=== PATIENT | female | born 1930 | race Caucasian/White ===

== ENCOUNTER 2017-02-09 10:55 | Inpatient (IN) | payer MEDICARE, BC ==
[2017-02-09] MEDS ORDERED: NORMAL SALINE 1000 ML 1,000 ML IV ONE (11:25)
[2017-02-09 11:32] LABS: ABSOLUTE MONOCYTES (AUTO) 0.8 10^3/uL (0.1-1.4); ABSOLUTE NEUT (AUTO) 13.6 10^3/uL (1.7-8.2); BASOPHILS % (AUTO) 0.2 % (0-2); EOSINOPHILS % (AUTO) 0.2 % (0-6); HEMATOCRIT 49.1 % (36.0-47.0); HEMOGLOBIN 16.4 g/dL (12.0-15.5); HGB HCT DIFFERENCE 0.1; LYMPHOCYTES % (AUTO) 11.9 % (13-45); MEAN CORPUSCULAR HEMOGLOBIN 32.7 pg (27.0-33.4); MEAN CORPUSCULAR HGB CONC 33.4 g/dL (32.0-36.0); MEAN CORPUSCULAR VOLUME 98 fl (80-97); MONOCYTES % (AUTO) 4.7 % (3-13); RED BLOOD COUNT 5.02 10^6/uL (3.72-5.28); RED CELL DISTRIBUTION WIDTH 13.3 % (11.5-14.0); WHITE BLOOD COUNT 16.4 10^3/uL (4.0-10.5)
--- NOTE | 2017-02-09 11:43 | RADIOLOGY REPORT (SQ) ---
EXAM DESCRIPTION: CHEST SINGLE VIEW COMPLETED DATE/TIME: 02/09/2017 11:31 am REASON FOR STUDY: lethargy, fall COMPARISON: None. EXAM PARAMETERS: NUMBER OF VIEWS: One view. TECHNIQUE: Single frontal radiographic view of the chest acquired. RADIATION DOSE: NA LIMITATIONS: None. FINDINGS: LUNGS AND PLEURA: The lungs are hyperexpanded. There are no infiltrates or effusions. Th ere is no mass. MEDIASTINUM AND HILAR STRUCTURES: No masses. Contour normal. HEART AND VASCULAR STRUCTURES: Heart normal in size. Normal vasculature. BONES: No acute findings. HARDWARE: None in the chest. OTHER: No other significant finding. IMPRESSION: Chronic lung changes with no acute cardiopulmonary disease. TECHNICAL DOCUMENTATION: JOB ID: [id number] [employer]- All Rights Reserved
[2017-02-09 12:10] LABS: APPEARANCE,URINE SLIGHTLY-CLOUDY; BILIRUBIN,URINE NEGATIVE (NEGATIVE); GLUCOSE, URINE NEGATIVE (NEGATIVE); KETONES,URINE TRACE mg/dL (NEGATIVE); LEUKOCYTE ESTERASE,URINE TRACE (NEGATIVE); NITRITE,URINE NEGATIVE (NEGATIVE); PROTEIN,URINE 100 mg/dL (NEGATIVE); URINE SPECIFIC GRAVITY 1.028
[2017-02-09] MEDS ORDERED: CEFTRIAXONE 1 GM/D5W RTU 1 GM/50 ML RTUPB IV ONE (12:13)
[2017-02-09 13:34] LABS: ALANINE AMINOTRANSFERASE 35 U/L (9-52); ALBUMIN 3.6 g/dL (3.5-5.0); ALKALINE PHOSPHATASE 83 U/L (38-126); ANION GAP 15 (5-19); ASPARTATE AMINO TRANSFERASE 36 U/L (14-36); BILIRUBIN,DIRECT 0.6 mg/dL (0.0-0.4); BILIRUBIN,TOTAL 0.7 mg/dL (0.2-1.3); BLOOD UREA NITROGEN 30 mg/dL (7-20); CALCIUM 9.9 mg/dL (8.4-10.2); CARBON DIOXIDE 28 mmol/L (22-30); CHLORIDE 108 mmol/L (98-107); CREATINE KINASE 62 U/L (30-135); CREATININE RESULT 1.02 mg/dL (0.52-1.25); GLUCOSE 79 mg/dL (75-110); POTASSIUM 3.3 mmol/L (3.6-5.0); SODIUM 150.6 mmol/L (137-145); TOTAL PROTEIN 6.2 g/dL (6.3-8.2)
[2017-02-09 13:39] LABS: CREATINE KINASE MB 2.41 ng/mL (<4.55)
[2017-02-09 13:43] LABS: TROPONIN I 0.834 ng/mL
--- NOTE | 2017-02-09 14:21 | ER Document Report ---
ED Fall - General Chief Complaint: Fall Stated Complaint: FALL;BODY PAIN Time Seen by Provider: 02/09/17 11:01 Mode of Arrival: Medic Information source: Patient Notes: With dementia who lives alone at home who presents to the ER today because her daughter states that she has been lethargic over the past week after multiple episodes of vomiting. Daughter states that she was recently diagnosed with stomach ulcers and is on Carafate and an antacid medication from her information systems security analyst, has had a lot of nausea and vomiting since having the ulcers. Daughter states that she goes to check on her at least daily and that patient usually walks on her own without any difficulty. Daughter denies that patient has complained of any symptoms such as pain anywhere, fevers or chills. Daughter states that this morning patient was in the bathroom and did fall. This was an unwitnessed fall, daughter states that she found her on the floor. Patient has a History of multiple strokes. TRAVEL OUTSIDE OF THE [place] IN LAST 30 DAYS: No - Related data Allergies/Adverse Reactions: No Known Allergies Allergy (Verified 12/23/13 16:02) Home Medications: Current Home Medications Atorvastatin Calcium [Lipitor 20 mg Tablet] 20 mg PO QHS 02/09/17 [History] Clopidogrel Bisulfate [Plavix 75 mg Tablet] 75 mg PO DAILY 02/09/17 [History] Donepezil HCl [Aricept 5 mg Tablet] 5 mg PO DAILY 02/09/17 [History] Lorazepam [Ativan 1 mg Tablet] 2 mg PO Q4 02/09/17 [History] Mirtazapine [Remeron] 30 mg PO QPM 02/09/17 [History] Oxycodone HCl/Acetaminophen [Oxycodone-Acetaminophen 10-325] 1 each PO Q4HP PRN 02/09/17 [History] Rabeprazole Sodium [Aciphex] 20 mg PO BID 02/09/17 [History] Sucralfate [Carafate Susp 1 Gm/10 Ml Udcup] 1 gm PO Q4 02/09/17 [History] Past Medical History - General Information source: Patient - Social History Smoking Status: Never Smoker Frequency of alcohol use: None Drug Abuse: None Family History: Reviewed & Not Pertinent Patient has suicidal ideation: No Patient has homicidal ideation: No - Past Medical History Cardiac Medical History: Reports: Hx Coronary Artery Disease Denies: Hx Heart Attack, Hx Hypertension Pulmonary Medical History: Denies: Hx Asthma, Hx Bronchitis, Hx COPD, Hx Pneumonia Neurological Medical History: Denies: Hx Cerebrovascular Accident, Hx Seizures Renal/ Medical History: Denies: Hx Peritoneal Dialysis GI Medical History: Reports: Hx Ulcer - Esophageal. Denies: Hx Hepatitis, Hx Hiatal Hernia Musculoskeltal Medical History: Reports Hx Arthritis Psychiatric Medical History: Reports: Hx Anxiety Infectious Medical History: Denies: Hx Hepatitis Past Surgical History: Reports: Hx Cardiac Catheterization - 2 stents, Hx Hysterectomy. Denies: Hx Mastectomy, Hx Open Heart Surgery, Hx Pacemaker - Immunizations Hx Diphtheria, Pertussis, Tetanus Vaccination: No Review of Systems - Review of Systems Constitutional: No symptoms reported EENT: No symptoms reported Cardiovascular: No symptoms reported Respiratory: No symptoms reported Gastrointestinal: See HPI Genitourinary: No symptoms reported Female Genitourinary: No symptoms reported Musculoskeletal: See HPI Skin: No symptoms reported Hematologic/Lymphatic: No symptoms reported Neurological/Psychological: See HPI Physical Exam - Vital signs Vitals: Resp Pulse Ox 14 99 02/09/17 11:02 02/09/17 11:02 - Notes Notes: PHYSICAL EXAMINATION: GENERAL: demented, lethargic, in no acute distress. HEAD: Atraumatic, normocephalic. EYES: Pupils equal round and reactive to light, extraocular movements intact, sclera anicteric, conjunctiva are normal. NECK: Normal range of motion, supple without lymphadenopathy LUNGS: CTAB and equal. No wheezes rales or rhonchi. HEART: Regular rate and rhythm without murmurs ABDOMEN: Soft, no tenderness. No guarding, no rebound BACK: no vertebral tenderness, normal ROM GI/: no CVA tenderness EXTREMITIES: Normal range of motion, no pitting edema. No cyanosis. NEUROLOGICAL: demented PSYCH: Nonverbal SKIN: Warm, Dry, normal turgor, no rashes or lesions noted Course - Re-evaluation Re-evalutation: 02/09/17 15:14 White blood cell count is 16.4, patient has a urinary tract infection with leukocytes and 62 White blood cells on urinalysis, patient came in hypotensive and tachycardic, this is completely resolved with IV fluids at this time. Patient is now normotensive and has had a pulse in the 70s for some time now. Patient has been resting. Initial EKG reveals some ST depressions in leads II, III and aVF. troponin is 0.834. At this time daughter and I did have a conversation, she states patient is a DNR and that she does not want her transferred to receive cardiac catheterization. She states that she wants medical treatment for patients NSTEMI at this time. Dr. Olsen, hospitalist agrees to admission at this time. 02/09/17 18:52 - Vital Signs Vital signs: Temp Pulse Resp BP Pulse Ox 98.2 F 17 94/76 L 92 02/09/17 14:33 02/09/17 16:55 02/09/17 18:09 02/09/17 16:55 - Laboratory Result Diagrams: 02/09/17 11:10 02/09/17 12:50 Laboratory results interpreted by me: 02/09/17 02/09/17 02/09/17 11:10 11:10 12:50 WBC 16.4 H Hgb 16.4 H Hct 49.1 H MCV 98 H Seg Neutrophils % 83.0 H Lymphocytes % 11.9 L Absolute Neutrophils 13.6 H Sodium 150.6 H Potassium 3.3 L Chloride 108 H BUN 30 H Est GFR (Non-Af Amer) 52 L Direct Bilirubin 0.6 H Total Protein 6.2 L Urine Protein 100 H Urine Ketones TRACE H Urine Blood LARGE H Urine Urobilinogen 2.0 H Ur Leukocyte Esterase TRACE H Discharge - Discharge Clinical Impression: NSTEMI (non-ST elevated myocardial infarction) UTI (urinary tract infection) Qualifiers: Urinary tract infection type: site unspecified Hematuria presence: with hematuria Qualified Code(s): N39.0 - Urinary tract infection, site not specified Fall Qualifiers: Encounter type: initial encounter Qualified Code(s): W19.XXXA - Unspecified fall, initial encounter Dementia Qualifiers: Dementia type: unspecified type Dementia behavioral disturbance: without behavioral disturbance Qualified Code(s): F03.90 - Unspecified dementia without behavioral disturbance Condition: Stable Disposition: ADMITTED INPATIENT Admitting Provider: Hospitalist Unit Admitted: Telemetry
[2017-02-09] MEDS ORDERED: ACETAMINOPHEN 325 MG TABLET PO PRN (16:40)
[2017-02-09] MEDS ORDERED: IPRATROPIUM/ALBUTEROL 0.5-2.5 MG/3 ML AMPUL NEB PRN (16:40)
[2017-02-09] MEDS ORDERED: (PENDING PHARMACY ID) (Oxycodone Hcl/Acetaminophen [Oxycodone-Acetaminophen 10-325] 1 EACH PO PRN (17:12)
[2017-02-09] MEDS: LORAZEPAM 1 MG TABLET PO SCH ×2 (17:33→21:50)
[2017-02-09] MEDS: NORMAL SALINE 1000 ML 1,000 ML IV PRN ×2 (17:50→19:20)
[2017-02-09] MEDS ORDERED: (PENDING PHARMACY ID) (Rabeprazole Sodium [Aciphex] 20 MG) PO SCH (18:00)
--- NOTE | 2017-02-09 19:05 | PDOC H&P ---
History of Present Illness Admission Date/PCP: 02/09/17 16:02 History of Present Illness: KYLER CAMERON is a 86 year old white female with a past medical history of coronary artery disease, hypertension, esophageal ulcer disease, chronic pain on chronic pain medicine secondary to arthritis and bladder cancer presented to the service today after a fall. According to her family members over the last month the patient has been steadily declining in her mentation. Over the last 3 days things have been at their worse. The patient has been sleeping nonstop in bed with decreased appetite. The patient has lost a lot of weight because of her ulcer disease and stricture of her esophagus. Her family also states that she has become more difficult to get along with and that her mentation has worsened. Today she had a fall in the bathroom. According to her son she hit her head and that explains her hematoma. He states that the patient is on Plavix. In the ED, the patient is quite restless and trying to take off her bandage that is being used to secure her IV. She told me flat out that she did not want to talk to me and that she thought my questions about a year and asking her where she was were silly. In the ED she was found to have an elevated troponin of 0.835 as well as initially hypotensive with a systolic blood pressure of 70. She was given a liter bolus which increased her blood pressure quite nicely to the low 100s. Creatinine was 1.02. Her family was quite specific that they would not want the patient to have extreme measures done in terms of a cardiac workup. They state that she has been having symptoms of dysuria and complaining of pressure whenever she has to have a bowel movement or urinates. In the emergency room her urinalysis showed large blood with trace leukocyte esterase her white blood cell count is 16.4. she got a shot of Rocephin while she was down there. Past Medical History Cardiac Medical History: Reports: Coronary Artery Disease, Hypertension Cardiac History Note: Carotid disease bilaterally Pulmonary Medical History: Reports: Chronic Obstructive Pulmonary Disease (COPD) Neurological Medical History: Reports: Ischemic CVA Malignancy History Note: Bladder cancer Musculoskeltal Medical History: Reports: Arthritis Skin History Note: Lupus Past Surgical History Past Surgical History: Bladder surgery 2 Past Surgical History: Reports: Cardiac Catheterization - 2 stents, Hysterectomy Social History Information Source: Patient Lives with: Family Smoking Status: Current Every Day Smoker Cigars Per Day: 1 Number of Years Smokin Frequency of Alcohol Use: None Hx Recreational Drug Use: Yes - Advance Directive Resuscitation Status: Do Not Resuscitate Family History Family History: CVA, DM, Hypertension Parental Family History Reviewed: Yes Children Family History Reviewed: Yes Sibling(s) Family History Reviewed.: Yes Medication/Allergy Home Medications: Atorvastatin Calcium [Lipitor 20 mg Tablet] 20 mg PO QHS 02/09/17 Clopidogrel Bisulfate [Plavix 75 mg Tablet] 75 mg PO DAILY 02/09/17 Donepezil HCl [Aricept 5 mg Tablet] 5 mg PO DAILY 02/09/17 Lorazepam [Ativan 1 mg Tablet] 2 mg PO Q4 02/09/17 Mirtazapine [Remeron] 30 mg PO QPM 02/09/17 Oxycodone HCl/Acetaminophen [Oxycodone-Acetaminophen 10-325] 1 each PO Q4HP PRN 02/09/17 Rabeprazole Sodium [Aciphex] 20 mg PO BID 02/09/17 Sucralfate [Carafate Susp 1 Gm/10 Ml Udcup] 1 gm PO Q4 02/09/17 Allergies/Adverse Reactions: No Known Allergies Allergy (Verified 12/23/13 16:02) Review of Systems Review of Systems: The patient does not cooperate with the review of systems. She refuses to be interview. Her family at the bedside has said that she is cold natured and that at times she complains of abdominal pain with trying to pass a bowel movement. She has chronic arthritis and often complains of that and she is had visual changes since her last stroke. She has had weight loss but they cannot quantify it. They attribute this weight loss due to her esophageal stricture and ulcerative disease. They deny that she is complained to them about any chest pain, shortness of breath, fever, vomiting, nausea, headaches, dizziness or lightheadedness, blood in the stool, blood in urine coughing up blood or throwing up blood. Physical Exam Vital Signs: Temp Pulse Resp BP Pulse Ox 98.2 F 17 153/131 H 92 02/09/17 14:33 02/09/17 16:55 02/09/17 16:00 02/09/17 16:55 GENERAL: This is a well-developed well-nourished appearing white female resting in bed currently in no acute distress but quite uncooperative and fidgety at the bedside. HEENT normocephalic. Atraumatic. The patient has a hematoma of the forehead. Moist mucous mucous membranes. Trachea is midline. HEART: Regular rate and rhythm. No murmurs, rubs or gallops. LUNGS: Clear to auscultation anteriorly bilaterally with equal rise and fall of the chest. ABDOMEN: Soft, nontender, nondistended with normoactive bowel sounds EXTREMETIES: No clubbing, cyanosis or edema. 2+ peripheral pulses bilaterally. Small-caliber extremities. NEURO: Awake, alert. The patient will not answer orienting questions. I suspect she is disoriented. I had to make a game out of most of the neurologic assessment therefore it is incomplete due to lack of cooperation. Cranial nerves II through XII are grossly intact. The patient can lift her legs against gravity. She is willing to make a muscle for me and seems to have 5 out of 5 strength in the upper extremities bilaterally Results Impressions: Chest X-Ray 02/09/17 11:02 IMPRESSION: Chronic lung changes with no acute cardiopulmonary disease. Assessment & Plan - Diagnosis (1) Acute on chronic alteration in mental status Plan: Patient's family states that her mental status seems to be acutely worse although it also seems to have been steadily declining up to these 3 days. It may be that she has underlying dementia with superimposed infection that is causing worsening in her behavior. I will have some as needed Haldol and her family has given permission for restraints if necessary. Apparently she is had to have restraints before in the past. Hopefully her mentation will clear. (2) CVA (cerebral vascular accident) Plan: Patient is on Plavix at home. We will keep an eye on her hemoglobin. Because of her extensive history of CVAs in the past, we should continue the Plavix for now. (3) Bladder cancer Plan: Follow-up as outpatient. The patient has had some symptoms of dysuria however. See below (4) Tobacco abuse Plan: Poking cessation is advised (5) Hypotension Plan: This may be the beginnings of sepsis or this could be secondary to cardiogenic insult from an STEMI. The patient's blood pressure responded nicely to a liter fluid bolus. Continue to monitor. Continue IV fluids. (6) Chronic pain Plan: Continue home regimen. Chronic pain is secondary to widespread arthritis. (8) Dementia Qualifiers: Dementia type: unspecified type Dementia behavioral disturbance: without behavioral disturbance Qualified Code(s): F03.90 - Unspecified dementia without behavioral disturbance (9) Fall Qualifiers: Encounter type: initial encounter Qualified Code(s): W19.XXXA - Unspecified fall, initial encounter Plan: Possibly secondary to arrhythmia versus medication effects or simply a mechanical fall. It is unknown at this point. (10) NSTEMI (non-ST elevated myocardial infarction) Plan: Troponins are initially 0.8. Repeat 2. At this point and at her age and with her comorbid conditions, I do not recommend pursuit of cardiac cath. Family is in agreement with this. However, we certainly can pursue optimization of her medications. She is already on Plavix for history of CVA. We certainly can give her therapeutic dose of Lovenox. However with her hypotension beta- blockade at this point is not something we can do. Repeat troponins are pending. Cardiology consult is in place. (11) UTI (urinary tract infection) Qualifiers: Urinary tract infection type: site unspecified Hematuria presence: with hematuria Qualified Code(s): N39.0 - Urinary tract infection, site not specified; R31.9 - Hematuria, unspecified; R31.9 - Hematuria, unspecified Plan: Ultrasound been sent continue Rocephin. The family acknowledges dysuria on behalf of the patient. - Time Time Spent: 50 to 70 Minutes - Inpatient Certification Medical Necessity: Need Close Monitoring Due to Risk of Patient Decompensation
[2017-02-09] MEDS ORDERED: HALOPERIDOL LACTATE INJ 5 MG/1 ML VIAL IV PRN (19:08)
[2017-02-09] MEDS: OXYCODONE HCL IR 5 MG TABLET PO PRN (19:20)
[2017-02-09] MEDS: OXYCODONE-ACETAMINOPHEN 5-325 MG TABLET PO PRN (19:20)
[2017-02-09] MEDS: SUCRALFATE SUSP 1 GM/10 ML UDCUP PO SCH ×2 (19:21→21:49)
[2017-02-09] MEDS ORDERED: ENOXAPARIN SODIUM INJ 40 MG/0.4 ML DISP.SYRIN SUBCUT ONE (20:00)
[2017-02-09] MEDS ORDERED: INFLUENZA ADLT QUAD (36MOS+) 2017-18 VAC 0.5 ML SYR IM PRN (20:35)
[2017-02-09] MEDS: MIRTAZAPINE 15 MG TABLET PO SCH (21:50)
[2017-02-09] MEDS: ATORVASTATIN CALCIUM 20 MG TABLET PO SCH (21:50)
[2017-02-10] MEDS: LORAZEPAM 1 MG TABLET PO SCH ×6 (02:05→19:05)
[2017-02-10] MEDS: SUCRALFATE SUSP 1 GM/10 ML UDCUP PO SCH ×5 (02:05→18:22)
[2017-02-10] MEDS ORDERED: NORMAL SALINE 1000 ML 1,000 ML IV PRN (02:13)
[2017-02-10] MEDS ORDERED: NORMAL SALINE 1000 ML 1,000 ML IV ONE ×2 (02:13→04:02)
[2017-02-10 06:09] LABS: ABSOLUTE EOSINOPHILS # (AUTO) 0.2 10^3/uL (0.0-0.6); ABSOLUTE LYMPHOCYTES (AUTO) 3.4 10^3/uL (0.5-4.7); ABSOLUTE MONOCYTES (AUTO) 0.6 10^3/uL (0.1-1.4); BASOPHILS % (AUTO) 0.3 % (0-2); EOSINOPHILS % (AUTO) 1.3 % (0-6); HEMATOCRIT 37.5 % (36.0-47.0); HGB HCT DIFFERENCE 0.6; LYMPHOCYTES % (AUTO) 27.6 % (13-45); MEAN CORPUSCULAR HEMOGLOBIN 33.2 pg (27.0-33.4); MEAN CORPUSCULAR VOLUME 98 fl (80-97); MONOCYTES % (AUTO) 5.1 % (3-13); RED BLOOD COUNT 3.84 10^6/uL (3.72-5.28); RED CELL DISTRIBUTION WIDTH 13.1 % (11.5-14.0); SEGMENTED NEUTROPHILS % (AUTO) 65.7 % (42-78); WHITE BLOOD COUNT 12.2 10^3/uL (4.0-10.5)
[2017-02-10 06:13] LABS: HEMOGLOBIN 12.7 g/dL (12.0-15.5)
[2017-02-10 06:14] LABS: ANION GAP 13 (5-19); BLOOD UREA NITROGEN 19 mg/dL (7-20); CARBON DIOXIDE 21 mmol/L (22-30); CHLORIDE 114 mmol/L (98-107); CREATININE RESULT 0.67 mg/dL (0.52-1.25); GLUCOSE 42 mg/dL (75-110); SODIUM 147.5 mmol/L (137-145)
[2017-02-10 06:19] LABS: POTASSIUM 2.7 mmol/L (3.6-5.0)
[2017-02-10] MEDS ORDERED: POTASSIUM CHLORIDE 10 MEQ TABLET.SA PO ONE (06:21)
[2017-02-10] MEDS ORDERED: DEXTROSE 50%-WATER 25 GM/50 ML DISP.SYRIN IV ONE ×3 (06:21→17:15)
[2017-02-10] MEDS: POTASSI CL 20 MEQ/50 ML RIDER 20 MEQ/50 ML RTUPB IV SCH ×4 (06:56→18:20)
[2017-02-10] MEDS ORDERED: DONEPEZIL HCL 5 MG TABLET PO SCH (10:00)
[2017-02-10] MEDS: OXYCODONE HCL IR 5 MG TABLET PO PRN ×2 (10:44→15:12)
[2017-02-10] MEDS: OXYCODONE-ACETAMINOPHEN 5-325 MG TABLET PO PRN ×2 (10:44→15:11)
[2017-02-10] MEDS: CLOPIDOGREL BISULFATE 75 MG TABLET PO SCH (10:45)
[2017-02-10] MEDS: LANSOPRAZOLE 30 MG TAB.RAP.DR PO SCH ×2 (10:45→18:21)
--- NOTE | 2017-02-10 11:43 | EKG REPORT ---
SEVERITY:- BORDERLINE ECG - SINUS RHYTHM RIGHT AXIS DEVIATION BORDERLINE T ABNORMALITIES, DIFFUSE LEADS : Confirmed by: Ann Haynes 10-Feb-2017 11:42:37
--- NOTE | 2017-02-10 11:43 | EKG REPORT ---
SEVERITY:- ABNORMAL ECG - SINUS RHYTHM RIGHT ATRIAL ABNORMALITY NONSPECIFIC ST-T CHANGES : Confirmed by: Ann Haynes 10-Feb-2017 11:43:01
[2017-02-10] MEDS: CEFTRIAXONE 1 GM/D5W RTU 1 GM/50 ML RTUPB IV SCH (12:25)
--- NOTE | 2017-02-10 15:30 | PDOC PROGRESS REPORT ---
Subjective Progress Note for:: 02/10/17 Subjective:: Patient is awake, she appears comfortable. She is a poor historian secondary to dementia. She has been pulling out IVs next needed for her medications. Family at bedside. Mittens have been ordered and family agree to prevent alcohol pulling out her IVs. Patient has poor oral intake. She is on IV fluids. Physical Exam Vital Signs: Temp Pulse Resp BP Pulse Ox 97.9 F 75 16 120/69 99 02/10/17 12:13 02/10/17 12:13 02/10/17 12:13 02/10/17 12:13 02/10/17 12:13 Intake & Output 02/09/17 02/10/17 02/11/17 06:59 06:59 05:59 Intake Total 2745 Balance 2745 Weight 44.254 kg Exam: GENERAL: Cachectic, no acute distress CARDIOVASCULAR: RRR, normal S1-S2 LUNGS: CTA bilaterally ABDOMEN: Soft, NT, NL bowel sounds EXTREMITIES: No edema, clubbing, cyanosis NEUROLOGICAL: Alert, Results Laboratory Results: 02/10/17 04:54 02/10/17 04:54 02/10/17 02/10/17 02/10/17 04:54 04:54 04:54 WBC 12.2 H RBC 3.84 Hgb 12.7 D Hct 37.5 MCV 98 H MCH 33.2 MCHC 34.0 RDW 13.1 Plt Count 181 Seg Neutrophils % 65.7 Lymphocytes % 27.6 Monocytes % 5.1 Eosinophils % 1.3 Basophils % 0.3 Absolute Neutrophils 8.0 Absolute Lymphocytes 3.4 Absolute Monocytes 0.6 Absolute Eosinophils 0.2 Absolute Basophils 0.0 Sodium 147.5 H Potassium 2.7 L* Chloride 114 H Carbon Dioxide 21 L Anion Gap 13 BUN 19 Creatinine 0.67 Est GFR ( Amer) > 60 Est GFR (Non-Af Amer) > 60 Glucose 42 L Calcium 8.0 L Ionized Calcium Chente Magnesium 1.8 02/10/17 07:19 WBC RBC Hgb Hct MCV MCH MCHC RDW Plt Count Seg Neutrophils % Lymphocytes % Monocytes % Eosinophils % Basophils % Absolute Neutrophils Absolute Lymphocytes Absolute Monocytes Absolute Eosinophils Absolute Basophils Sodium Potassium Chloride Carbon Dioxide Anion Gap BUN Creatinine Est GFR ( Amer) Est GFR (Non-Af Amer) Glucose Calcium Ionized Calcium Chente 1.04 L Magnesium 02/09/17 02/09/17 17:19 23:35 Troponin I 0.810 0.844 Impressions: Chest X-Ray 02/09/17 11:02 IMPRESSION: Chronic lung changes with no acute cardiopulmonary disease. Assessment & Plan - Diagnosis (1) Acute on chronic alteration in mental status Plan: Patient still with periods of confusion, but slightly improved. Dementia likely contributory as well as a UTI. We will continue to monitor and treat medical conditions/contributors. (2) NSTEMI (non-ST elevated myocardial infarction) Plan: Troponins slightly elevated but flat. Continue medical management. Patient on aspirin and Plavix. (3) UTI (urinary tract infection) Qualifiers: Urinary tract infection type: site unspecified Hematuria presence: with hematuria Qualified Code(s): N39.0 - Urinary tract infection, site not specified; R31.9 - Hematuria, unspecified; R31.9 - Hematuria, unspecified Plan: Continue Rocephin. Follow cultures (4) Dementia Qualifiers: Dementia type: Alzheimer's disease Dementia behavioral disturbance: without behavioral disturbance Is this a current diagnosis for this admission?: Yes (5) Hypotension Plan: Improving. Continue IV fluids. (6) Bladder cancer Qualifiers: Bladder location: unspecified site Qualified Code(s): C67.9 - Malignant neoplasm of bladder, unspecified Is this a current diagnosis for this admission?: Yes Plan: Follow urine culture results. Continue antibiotics. Outpatient follow-up for underlying bladder cancer at discharge. (7) CVA (cerebral vascular accident) Is this a current diagnosis for this admission?: No (8) Hypokalemia Is this a current diagnosis for this admission?: Yes Plan: Repleted. Follow-up Chem-7 in a.m. - Plan Summary Plan Summary: Suspected altered mental status secondary to underlying dementia as well as urinary tract infection. Blood culture growing gram-positive cocci. We will follow sensitivity. Continue IV fluids for now. Continue Rocephin for UTI. Add ensure to diet. Continue IV fluids for now.
[2017-02-10] MEDS: DEXTROSE 5%-NORMAL SALINE 1,000 ML IV PRN (18:19)
[2017-02-11] MEDS: SUCRALFATE SUSP 1 GM/10 ML UDCUP PO SCH ×7 (01:34→23:34)
[2017-02-11] MEDS: LORAZEPAM 1 MG TABLET PO SCH ×7 (01:34→23:33)
[2017-02-11] MEDS: DEXTROSE 5%-NORMAL SALINE 1,000 ML IV PRN ×3 (01:35→19:00)
[2017-02-11] MEDS: MIRTAZAPINE 15 MG TABLET PO SCH ×2 (01:49→23:33)
[2017-02-11] MEDS: ATORVASTATIN CALCIUM 20 MG TABLET PO SCH ×2 (01:49→23:33)
[2017-02-11 06:44] LABS: ABSOLUTE EOSINOPHILS # (AUTO) 0.2 10^3/uL (0.0-0.6); ABSOLUTE LYMPHOCYTES (AUTO) 2.6 10^3/uL (0.5-4.7); ABSOLUTE MONOCYTES (AUTO) 0.5 10^3/uL (0.1-1.4); ABSOLUTE NEUT (AUTO) 7.2 10^3/uL (1.7-8.2); BASOPHILS % (AUTO) 0.3 % (0-2); HEMATOCRIT 41.1 % (36.0-47.0); HEMOGLOBIN 14.1 g/dL (12.0-15.5); HGB HCT DIFFERENCE 1.2; LYMPHOCYTES % (AUTO) 24.6 % (13-45); MEAN CORPUSCULAR HEMOGLOBIN 33.6 pg (27.0-33.4); MEAN CORPUSCULAR HGB CONC 34.3 g/dL (32.0-36.0); MEAN CORPUSCULAR VOLUME 98 fl (80-97); MONOCYTES % (AUTO) 4.8 % (3-13); RED BLOOD COUNT 4.19 10^6/uL (3.72-5.28); RED CELL DISTRIBUTION WIDTH 13.3 % (11.5-14.0); SEGMENTED NEUTROPHILS % (AUTO) 68.3 % (42-78); WHITE BLOOD COUNT 10.5 10^3/uL (4.0-10.5)
[2017-02-11 07:02] LABS: ANION GAP 9 (5-19); BLOOD UREA NITROGEN 7 mg/dL (7-20); CALCIUM 8.3 mg/dL (8.4-10.2); CARBON DIOXIDE 21 mmol/L (22-30); CHLORIDE 117 mmol/L (98-107); CREATININE RESULT 0.55 mg/dL (0.52-1.25); GLUCOSE 100 mg/dL (75-110); SODIUM 146.8 mmol/L (137-145)
[2017-02-11] MEDS: CLOPIDOGREL BISULFATE 75 MG TABLET PO SCH (12:06)
[2017-02-11] MEDS: LANSOPRAZOLE 30 MG TAB.RAP.DR PO SCH ×2 (12:07→18:51)
[2017-02-11] MEDS: CEFTRIAXONE 1 GM/D5W RTU 1 GM/50 ML RTUPB IV SCH (12:07)
[2017-02-11] MEDS: OXYCODONE HCL IR 5 MG TABLET PO PRN (12:20)
[2017-02-11] MEDS: OXYCODONE-ACETAMINOPHEN 5-325 MG TABLET PO PRN (12:21)
--- NOTE | 2017-02-11 21:05 | PDOC PROGRESS REPORT ---
Subjective Progress Note for:: 02/11/17 Subjective:: Patient is awake, she is more awake today. She was pulling out IVs needed for her medications. Family at bedside. Mittens remain in place in her hands and family agree to prevent her pulling out her IVs. Patient has poor oral intake. She remains on IV fluids. Physical Exam Vital Signs: Temp Pulse Resp BP Pulse Ox 98.8 F 66 20 122/38 L 98 02/11/17 16:00 02/11/17 19:00 02/11/17 16:00 02/11/17 16:00 02/11/17 16:00 Intake & Output 02/10/17 02/11/17 02/12/17 07:59 06:59 06:59 Intake Total 2102 Output Total Balance 2102 Weight Exam: GENERAL: Cachectic, no acute distress CARDIOVASCULAR: RRR, normal S1-S2 LUNGS: CTA bilaterally ABDOMEN: Soft, NT, NL bowel sounds EXTREMITIES: No edema, clubbing, cyanosis NEUROLOGICAL: Alert, oriented to name and place. Results Laboratory Results: 02/11/17 06:29 02/11/17 06:29 02/11/17 02/11/17 06:29 06:29 WBC 10.5 RBC 4.19 Hgb 14.1 Hct 41.1 MCV 98 H MCH 33.6 H MCHC 34.3 RDW 13.3 Plt Count 193 Seg Neutrophils % 68.3 Lymphocytes % 24.6 Monocytes % 4.8 Eosinophils % 2.0 Basophils % 0.3 Absolute Neutrophils 7.2 Absolute Lymphocytes 2.6 Absolute Monocytes 0.5 Absolute Eosinophils 0.2 Absolute Basophils 0.0 Sodium 146.8 H Potassium 4.0 Chloride 117 H Carbon Dioxide 21 L Anion Gap 9 BUN 7 Creatinine 0.55 Est GFR ( Amer) > 60 Est GFR (Non-Af Amer) > 60 Glucose 100 Calcium 8.3 L 02/09/17 02/09/17 17:19 23:35 Troponin I 0.810 0.844 Impressions: Chest X-Ray 02/09/17 11:02 IMPRESSION: Chronic lung changes with no acute cardiopulmonary disease. Assessment & Plan - Diagnosis (1) Acute on chronic alteration in mental status Plan: Patient confusion has improved. Dementia likely contributory as well as a UTI. We will continue to monitor and treat medical conditions/contributors. (2) NSTEMI (non-ST elevated myocardial infarction) Plan: Troponins slightly elevated but flat. Continue medical management. Patient on aspirin and Plavix. (3) UTI (urinary tract infection) Qualifiers: Urinary tract infection type: site unspecified Hematuria presence: with hematuria Qualified Code(s): N39.0 - Urinary tract infection, site not specified; R31.9 - Hematuria, unspecified; R31.9 - Hematuria, unspecified Plan: Continue Rocephin. Follow cultures (4) Dementia Qualifiers: Dementia type: Alzheimer's disease Dementia behavioral disturbance: without behavioral disturbance Is this a current diagnosis for this admission?: Yes Plan: Mental status improving with treatment of infection. (5) Hypotension Plan: Improved. Continue IV fluids. (6) Bladder cancer Qualifiers: Bladder location: unspecified site Qualified Code(s): C67.9 - Malignant neoplasm of bladder, unspecified Is this a current diagnosis for this admission?: Yes Plan: Follow urine culture results. Continue antibiotics. Outpatient follow-up for underlying bladder cancer at discharge. (7) CVA (cerebral vascular accident) Is this a current diagnosis for this admission?: No Plan: We will continue Plavix and aspirin. (8) Hypokalemia Is this a current diagnosis for this admission?: Yes Plan: Remains corrected. Follow-up Chem-7 in a.m.
[2017-02-12] MEDS: LORAZEPAM 1 MG TABLET PO SCH ×6 (04:08→22:15)
[2017-02-12] MEDS: SUCRALFATE SUSP 1 GM/10 ML UDCUP PO SCH ×6 (04:08→22:15)
[2017-02-12] MEDS: DEXTROSE 5%-NORMAL SALINE 1,000 ML IV PRN ×3 (05:15→22:15)
[2017-02-12] MEDS: LANSOPRAZOLE 30 MG TAB.RAP.DR PO SCH ×2 (09:45→18:00)
[2017-02-12] MEDS: CLOPIDOGREL BISULFATE 75 MG TABLET PO SCH (09:45)
[2017-02-12 11:46] LABS: ABSOLUTE EOSINOPHILS # (AUTO) 0.2 10^3/uL (0.0-0.6); ABSOLUTE LYMPHOCYTES (AUTO) 2.6 10^3/uL (0.5-4.7); ABSOLUTE MONOCYTES (AUTO) 0.6 10^3/uL (0.1-1.4); BASOPHILS % (AUTO) 0.2 % (0-2); EOSINOPHILS % (AUTO) 1.3 % (0-6); HEMATOCRIT 41.7 % (36.0-47.0); HGB HCT DIFFERENCE 0.3; LYMPHOCYTES % (AUTO) 20.8 % (13-45); MEAN CORPUSCULAR HGB CONC 33.6 g/dL (32.0-36.0); MEAN CORPUSCULAR VOLUME 98 fl (80-97); MONOCYTES % (AUTO) 5.1 % (3-13); RED BLOOD COUNT 4.24 10^6/uL (3.72-5.28); RED CELL DISTRIBUTION WIDTH 13.1 % (11.5-14.0); SEGMENTED NEUTROPHILS % (AUTO) 72.6 % (42-78); WHITE BLOOD COUNT 12.5 10^3/uL (4.0-10.5)
[2017-02-12 12:19] LABS: ANION GAP 9 (5-19); BLOOD UREA NITROGEN 5 mg/dL (7-20); CALCIUM 8.4 mg/dL (8.4-10.2); CARBON DIOXIDE 22 mmol/L (22-30); CHLORIDE 113 mmol/L (98-107); CREATININE RESULT 0.51 mg/dL (0.52-1.25); GLUCOSE 86 mg/dL (75-110); POTASSIUM 3.4 mmol/L (3.6-5.0); SODIUM 144.4 mmol/L (137-145)
[2017-02-12] MEDS: CEFTRIAXONE 1 GM/D5W RTU 1 GM/50 ML RTUPB IV SCH (12:29)
--- NOTE | 2017-02-12 18:29 | PDOC PROGRESS REPORT ---
Subjective Progress Note for:: 02/12/17 Subjective:: Patient is more awake today. She was pulling out IVs needed for her medications and had mittens placed. She is doing better now mittens have been discontinued. Son at bedside. Mittens remain in place in her hands and family agree to prevent her pulling out her IVs. Patient has poor oral intake. She remains on IV fluids. Physical Exam Vital Signs: Temp Pulse Resp BP Pulse Ox 97.6 F 65 16 150/60 H 100 02/12/17 16:00 02/12/17 16:00 02/12/17 16:00 02/12/17 16:00 02/12/17 16:00 Intake & Output 02/11/17 02/12/17 02/13/17 06:59 06:59 06:59 Intake Total 3060 Output Total Balance 3060 Weight 48.4 kg Exam: GENERAL: Cachectic, no acute distress CARDIOVASCULAR: RRR, normal S1-S2 LUNGS: CTA bilaterally ABDOMEN: Soft, NT, NL bowel sounds EXTREMITIES: No edema, clubbing, cyanosis NEUROLOGICAL: Alert, oriented to name and place. Results Laboratory Results: 02/12/17 10:21 02/12/17 10:21 02/12/17 02/12/17 10:21 10:21 WBC 12.5 H RBC 4.24 Hgb 14.0 Hct 41.7 MCV 98 H MCH 33.0 MCHC 33.6 RDW 13.1 Plt Count 215 Seg Neutrophils % 72.6 Lymphocytes % 20.8 Monocytes % 5.1 Eosinophils % 1.3 Basophils % 0.2 Absolute Neutrophils 9.0 H Absolute Lymphocytes 2.6 Absolute Monocytes 0.6 Absolute Eosinophils 0.2 Absolute Basophils 0.0 Sodium 144.4 Potassium 3.4 L Chloride 113 H Carbon Dioxide 22 Anion Gap 9 BUN 5 L Creatinine 0.51 L Est GFR ( Amer) > 60 Est GFR (Non-Af Amer) > 60 Glucose 86 Calcium 8.4 02/09/17 02/09/17 17:19 23:35 Troponin I 0.810 0.844 Impressions: Chest X-Ray 02/09/17 11:02 IMPRESSION: Chronic lung changes with no acute cardiopulmonary disease. Assessment & Plan - Diagnosis (1) Acute on chronic alteration in mental status Plan: Patient confusion has improved. Dementia likely contributory as well as a UTI. We will continue to monitor and treat medical conditions/contributors. (2) NSTEMI (non-ST elevated myocardial infarction) Plan: Troponins slightly elevated but flat. Continue medical management. Patient on aspirin and Plavix. (3) UTI (urinary tract infection) Qualifiers: Urinary tract infection type: site unspecified Hematuria presence: with hematuria Qualified Code(s): N39.0 - Urinary tract infection, site not specified; R31.9 - Hematuria, unspecified; R31.9 - Hematuria, unspecified Plan: Continue Rocephin. Follow cultures (4) Dementia Qualifiers: Dementia type: Alzheimer's disease Dementia behavioral disturbance: without behavioral disturbance Is this a current diagnosis for this admission?: Yes Plan: Mental status improving with treatment of infection. (5) Hypotension Plan: Improved. Continue IV fluids. (6) Bladder cancer Qualifiers: Bladder location: unspecified site Qualified Code(s): C67.9 - Malignant neoplasm of bladder, unspecified Is this a current diagnosis for this admission?: Yes Plan: Follow urine culture results. Continue antibiotics. Outpatient follow-up for underlying bladder cancer at discharge. (7) CVA (cerebral vascular accident) Is this a current diagnosis for this admission?: No Plan: We will continue Plavix and aspirin. Patient with debility. Plan is for senior living facility with rehab. (8) Hypokalemia Is this a current diagnosis for this admission?: Yes Plan: Potassium mildly low today. We will replete orally with potassium chloride 40 MEQ p.o. 1. Follow-up Chem-7 in a.m.
[2017-02-12] MEDS ORDERED: POTASSIUM CHLORIDE 20 MEQ/15 ML UDCUP PO ONE (19:00)
[2017-02-12] MEDS: ATORVASTATIN CALCIUM 20 MG TABLET PO SCH (22:15)
[2017-02-12] MEDS: MIRTAZAPINE 15 MG TABLET PO SCH (22:15)
[2017-02-13] MEDS: SUCRALFATE SUSP 1 GM/10 ML UDCUP PO SCH ×6 (04:47→21:43)
[2017-02-13] MEDS: LORAZEPAM 1 MG TABLET PO SCH ×6 (04:47→21:43)
[2017-02-13 05:21] LABS: ABSOLUTE EOSINOPHILS # (AUTO) 0.2 10^3/uL (0.0-0.6); ABSOLUTE LYMPHOCYTES (AUTO) 2.7 10^3/uL (0.5-4.7); ABSOLUTE MONOCYTES (AUTO) 0.8 10^3/uL (0.1-1.4); ABSOLUTE NEUT (AUTO) 7.9 10^3/uL (1.7-8.2); BASOPHILS % (AUTO) 0.3 % (0-2); EOSINOPHILS % (AUTO) 1.9 % (0-6); HEMATOCRIT 39.1 % (36.0-47.0); HEMOGLOBIN 13.2 g/dL (12.0-15.5); HGB HCT DIFFERENCE 0.5; LYMPHOCYTES % (AUTO) 23.5 % (13-45); MEAN CORPUSCULAR HEMOGLOBIN 33.1 pg (27.0-33.4); MEAN CORPUSCULAR HGB CONC 33.8 g/dL (32.0-36.0); MEAN CORPUSCULAR VOLUME 98 fl (80-97); MONOCYTES % (AUTO) 6.6 % (3-13); RED BLOOD COUNT 3.99 10^6/uL (3.72-5.28); RED CELL DISTRIBUTION WIDTH 13.5 % (11.5-14.0); SEGMENTED NEUTROPHILS % (AUTO) 67.7 % (42-78); WHITE BLOOD COUNT 11.6 10^3/uL (4.0-10.5)
[2017-02-13 05:32] LABS: ANION GAP 8 (5-19); BLOOD UREA NITROGEN 3 mg/dL (7-20); CALCIUM 8.3 mg/dL (8.4-10.2); CARBON DIOXIDE 23 mmol/L (22-30); CHLORIDE 114 mmol/L (98-107); CREATININE RESULT 0.52 mg/dL (0.52-1.25); GLUCOSE 77 mg/dL (75-110); POTASSIUM 3.7 mmol/L (3.6-5.0); SODIUM 144.6 mmol/L (137-145)
[2017-02-13] MEDS: LANSOPRAZOLE 30 MG TAB.RAP.DR PO SCH ×2 (10:31→17:43)
[2017-02-13] MEDS: CLOPIDOGREL BISULFATE 75 MG TABLET PO SCH (10:32)
[2017-02-13] MEDS: CEFTRIAXONE 1 GM/D5W RTU 1 GM/50 ML RTUPB IV SCH (13:46)
--- NOTE | 2017-02-13 15:48 | PDOC PROGRESS REPORT ---
Subjective Progress Note for:: 02/13/17 Subjective:: Patient denies any complaints. Physical Exam Vital Signs: Temp Pulse Resp BP Pulse Ox 98.3 F 75 12 142/67 H 100 02/13/17 12:00 02/13/17 12:00 02/13/17 12:00 02/13/17 12:00 02/13/17 12:00 Intake & Output 02/12/17 02/13/17 02/14/17 06:59 06:59 06:59 Intake Total 3060 3020 180 Balance 3060 3020 180 Weight 48.4 kg 49.7 kg General appearance: PRESENT: no acute distress Eye exam: PRESENT: conjunctiva pink. ABSENT: scleral icterus Mouth exam: PRESENT: moist, tongue midline Neck exam: ABSENT: JVD Respiratory exam: PRESENT: clear to auscultation asiya. ABSENT: rales, rhonchi, wheezes Cardiovascular exam: PRESENT: RRR. ABSENT: diastolic murmur, rubs, systolic murmur GI/Abdominal exam: PRESENT: normal bowel sounds, soft. ABSENT: distended, guarding, mass, organolmegaly, rebound, tenderness Extremities exam: ABSENT: calf tenderness, clubbing, pedal edema Neurological exam: PRESENT: oriented to person, oriented to place. ABSENT: oriented to time, oriented to situation Psychiatric exam: PRESENT: flat affect Skin exam: PRESENT: dry, intact, warm. ABSENT: cyanosis, rash Results Laboratory Results: 02/13/17 04:41 02/13/17 04:41 02/13/17 02/13/17 04:41 04:41 WBC 11.6 H RBC 3.99 Hgb 13.2 Hct 39.1 MCV 98 H MCH 33.1 MCHC 33.8 RDW 13.5 Plt Count 199 Seg Neutrophils % 67.7 Lymphocytes % 23.5 Monocytes % 6.6 Eosinophils % 1.9 Basophils % 0.3 Absolute Neutrophils 7.9 Absolute Lymphocytes 2.7 Absolute Monocytes 0.8 Absolute Eosinophils 0.2 Absolute Basophils 0.0 Sodium 144.6 Potassium 3.7 Chloride 114 H Carbon Dioxide 23 Anion Gap 8 BUN 3 L Creatinine 0.52 Est GFR ( Amer) > 60 Est GFR (Non-Af Amer) > 60 Glucose 77 Calcium 8.3 L 02/09/17 02/09/17 17:19 23:35 Troponin I 0.810 0.844 Impressions: Chest X-Ray 02/09/17 11:02 IMPRESSION: Chronic lung changes with no acute cardiopulmonary disease. Assessment & Plan - Diagnosis (1) Acute on chronic alteration in mental status Is this a current diagnosis for this admission?: Yes Plan: This is been secondary to her dementia as well as urinary tract infection. Her mental status continues to improve. (2) UTI (urinary tract infection) Qualifiers: Urinary tract infection type: site unspecified Hematuria presence: with hematuria Qualified Code(s): N39.0 - Urinary tract infection, site not specified; R31.9 - Hematuria, unspecified; R31.9 - Hematuria, unspecified Is this a current diagnosis for this admission?: Yes Plan: Patient has grown out staph hominis from 1 culture. Will continue with the Rocephin. (3) CVA (cerebral vascular accident) Is this a current diagnosis for this admission?: No Plan: The patient is on aspirin and Plavix. (4) Dementia Qualifiers: Dementia type: Alzheimer's disease Dementia behavioral disturbance: without behavioral disturbance Is this a current diagnosis for this admission?: Yes Plan: This has been made worse with the urinary tract infection. (5) Hypokalemia Is this a current diagnosis for this admission?: Yes Plan: Resolved. (6) Hypotension Is this a current diagnosis for this admission?: Yes Plan: This has resolved with IV fluids. (7) NSTEMI (non-ST elevated myocardial infarction) Is this a current diagnosis for this admission?: Yes Plan: Patient had an elevated troponins. She denies any chest pain. Continue with aspirin and Plavix. (8) Bladder cancer Qualifiers: Bladder location: unspecified site Qualified Code(s): C67.9 - Malignant neoplasm of bladder, unspecified Is this a current diagnosis for this admission?: Yes - Time Time Spent with patient: 25-34 minutes - Inpatient Certification Medical Necessity: Need Close Monitoring Due to Risk of Patient Decompensation, Need for IV Antibiotics
[2017-02-13] MEDS: DEXTROSE 5%-NORMAL SALINE 1,000 ML IV PRN (21:42)
[2017-02-13] MEDS: MIRTAZAPINE 15 MG TABLET PO SCH (21:43)
[2017-02-13] MEDS: ATORVASTATIN CALCIUM 20 MG TABLET PO SCH (21:43)
[2017-02-14] MEDS: LORAZEPAM 1 MG TABLET PO SCH ×4 (03:09→15:29)
[2017-02-14] MEDS: SUCRALFATE SUSP 1 GM/10 ML UDCUP PO SCH ×4 (03:10→15:29)
[2017-02-14 05:59] LABS: ABSOLUTE EOSINOPHILS # (AUTO) 0.2 10^3/uL (0.0-0.6); ABSOLUTE LYMPHOCYTES (AUTO) 2.7 10^3/uL (0.5-4.7); ABSOLUTE MONOCYTES (AUTO) 0.8 10^3/uL (0.1-1.4); BASOPHILS % (AUTO) 0.3 % (0-2); EOSINOPHILS % (AUTO) 1.6 % (0-6); HEMATOCRIT 42.3 % (36.0-47.0); HEMOGLOBIN 14.3 g/dL (12.0-15.5); HGB HCT DIFFERENCE 0.6; MEAN CORPUSCULAR HEMOGLOBIN 32.9 pg (27.0-33.4); MEAN CORPUSCULAR HGB CONC 33.7 g/dL (32.0-36.0); MEAN CORPUSCULAR VOLUME 98 fl (80-97); MONOCYTES % (AUTO) 6.9 % (3-13); RED BLOOD COUNT 4.34 10^6/uL (3.72-5.28); RED CELL DISTRIBUTION WIDTH 13.2 % (11.5-14.0); SEGMENTED NEUTROPHILS % (AUTO) 68.2 % (42-78); WHITE BLOOD COUNT 11.8 10^3/uL (4.0-10.5)
[2017-02-14] MEDS: DEXTROSE 5%-NORMAL SALINE 1,000 ML IV PRN (06:05)
[2017-02-14 06:13] LABS: ANION GAP 10 (5-19); BLOOD UREA NITROGEN 3 mg/dL (7-20); CALCIUM 9.2 mg/dL (8.4-10.2); CARBON DIOXIDE 19 mmol/L (22-30); CHLORIDE 115 mmol/L (98-107); CREATININE RESULT 0.49 mg/dL (0.52-1.25); GLUCOSE 82 mg/dL (75-110); POTASSIUM 3.6 mmol/L (3.6-5.0); SODIUM 143.6 mmol/L (137-145)
[2017-02-14] MEDS: LANSOPRAZOLE 30 MG TAB.RAP.DR PO SCH (10:34)
[2017-02-14] MEDS: CLOPIDOGREL BISULFATE 75 MG TABLET PO SCH (10:34)
--- NOTE | 2017-02-14 11:10 | PDOC TRANSFER SUMMARY ---
General - Admit/Disc Date/PCP Admission Date/Primary Care Provider: 02/09/17 16:41 Discharge Date: 02/14/17 - Discharge Diagnosis (1) Acute on chronic alteration in mental status Is this a current diagnosis for this admission?: Yes Summary: [place] to be secondary to acute encephalopathy secondary to urinary tract infection on top of chronic dementia. (2) UTI (urinary tract infection) Is this a current diagnosis for this admission?: Yes Summary: Blood culture grew out staph hominis (3) CVA (cerebral vascular accident) Is this a current diagnosis for this admission?: No (4) Dementia Is this a current diagnosis for this admission?: Yes (5) Hypokalemia Is this a current diagnosis for this admission?: Yes (6) Hypotension Is this a current diagnosis for this admission?: Yes Summary: Most likely secondary to decreased p.o. intake. No evidence for sepsis. (7) NSTEMI (non-ST elevated myocardial infarction) Is this a current diagnosis for this admission?: Yes (8) Bladder cancer Is this a current diagnosis for this admission?: Yes - Additional Information Resuscitation Status: Do Not Resuscitate Discharge Diet: Cardiac Discharge Activity: Activity As Tolerated Home Medications: Atorvastatin Calcium [Lipitor 20 mg Tablet] 20 mg PO QHS 02/09/17 Clopidogrel Bisulfate [Plavix 75 mg Tablet] 75 mg PO DAILY 02/09/17 Donepezil HCl [Aricept 5 mg Tablet] 5 mg PO DAILY 02/09/17 Mirtazapine [Remeron] 30 mg PO QPM 02/09/17 Rabeprazole Sodium [Aciphex] 20 mg PO BID 02/09/17 Sucralfate [Carafate Susp 1 gm/10 ml Udcup] 1 gm PO Q4 02/09/17 Cefuroxime Axetil [Ceftin 500 mg Tablet] 1 tab PO BID #20 tablet 02/14/17 Lorazepam [Ativan 1 mg Tablet] 2 mg PO Q4 #14 tablet 02/14/17 Oxycodone HCl/Acetaminophen [Oxycodone-Acetaminophen 10-325] 1 each PO Q4HP PRN #14 tablet 02/14/17 History of Present Illness Admission Date/PCP: 02/09/17 16:41 History of Present Illness: KYLER CAMERON is a 86 year old white female with a past medical history of coronary artery disease, hypertension, esophageal ulcer disease, chronic pain on chronic pain medicine secondary to arthritis and bladder cancer presented to the service today after a fall. According to her family members over the last month the patient has been steadily declining in her mentation. Over the last 3 days things have been at their worse. The patient has been sleeping nonstop in bed with decreased appetite. The patient has lost a lot of weight because of her ulcer disease and stricture of her esophagus. Her family also states that she has become more difficult to get along with and that her mentation has worsened. Today she had a fall in the bathroom. According to her son she hit her head and that explains her hematoma. He states that the patient is on Plavix. In the ED, the patient is quite restless and trying to take off her bandage that is being used to secure her IV. She told me flat out that she did not want to talk to me and that she thought my questions about a year and asking her where she was were silly. In the ED she was found to have an elevated troponin of 0.835 as well as initially hypotensive with a systolic blood pressure of 70. She was given a liter bolus which increased her blood pressure quite nicely to the low 100s. Creatinine was 1.02. Her family was quite specific that they would not want the patient to have extreme measures done in terms of a cardiac workup. They state that she has been having symptoms of dysuria and complaining of pressure whenever she has to have a bowel movement or urinates. In the emergency room her urinalysis showed large blood with trace leukocyte esterase her white blood cell count is 16.4. she got a shot of Rocephin while she was down there. Hospital Course Hospital Course: 86-year-old female who has dementia as well as coronary artery disease baseline who presented to the emergency room with a one-month history of declining mental status. It worsened over the 3 days prior to presentation with excessive sleeping, anorexia and weight loss. The patient was found to have a urinary tract infection and was started on antibiotics empirically. The patient had a negative urine culture however had one blood culture that grew out staph hominis. The patient was treated with Rocephin initially. She will complete an additional 10 days of Ceftin for a total of 2 weeks of antibiotic therapy. The patient was hypotensive when she first presented and responded to IV fluids. Is felt this most likely was secondary to her anorexia and decreased p.o. intake and not due to sepsis. Patient also was noted to have elevated troponins but did not have any complaints of chest pain. It was felt that she probably suffered a type II non-STEMI. The patient has been pain-free and she is just being treated with Plavix. The patient needs physical therapy and will be sent to [facility] for rehab. Physical Exam Vital Signs: Temp Pulse Resp BP Pulse Ox 97.5 F 89 16 99/83 L 82 L 02/14/17 08:16 02/14/17 08:16 02/14/17 08:16 02/14/17 08:16 02/14/17 08:16 Intake & Output 02/13/17 02/14/17 02/15/17 06:59 06:59 06:59 Intake Total 3020 2743 Balance 3020 2743 Weight 49.7 kg 50.2 kg General appearance: PRESENT: no acute distress Eye exam: PRESENT: conjunctiva pink. ABSENT: scleral icterus Mouth exam: PRESENT: moist, tongue midline Neck exam: ABSENT: JVD Respiratory exam: PRESENT: clear to auscultation asiya. ABSENT: rales, rhonchi, wheezes Cardiovascular exam: PRESENT: RRR. ABSENT: diastolic murmur, rubs, systolic murmur Vascular exam: PRESENT: normal capillary refill GI/Abdominal exam: PRESENT: normal bowel sounds, soft. ABSENT: distended, guarding, mass, organolmegaly, rebound, tenderness Extremities exam: ABSENT: calf tenderness, clubbing, pedal edema Neurological exam: PRESENT: alert, awake, oriented to person, oriented to place , CN II-XII grossly intact. ABSENT: oriented to time, oriented to situation, motor sensory deficit Psychiatric exam: PRESENT: flat affect Skin exam: PRESENT: dry, intact, warm. ABSENT: cyanosis, rash Results Laboratory Results: 02/14/17 05:18 02/14/17 05:18 02/14/17 02/14/17 05:18 05:18 WBC 11.8 H RBC 4.34 Hgb 14.3 Hct 42.3 MCV 98 H MCH 32.9 MCHC 33.7 RDW 13.2 Plt Count 255 Seg Neutrophils % 68.2 Lymphocytes % 23.0 Monocytes % 6.9 Eosinophils % 1.6 Basophils % 0.3 Absolute Neutrophils 8.0 Absolute Lymphocytes 2.7 Absolute Monocytes 0.8 Absolute Eosinophils 0.2 Absolute Basophils 0.0 Sodium 143.6 Potassium 3.6 Chloride 115 H Carbon Dioxide 19 L Anion Gap 10 BUN 3 L Creatinine 0.49 L Est GFR ( Amer) > 60 Est GFR (Non-Af Amer) > 60 Glucose 82 Calcium 9.2 02/09/17 02/09/17 17:19 23:35 Troponin I 0.810 0.844 Impressions: Chest X-Ray 02/09/17 11:02 IMPRESSION: Chronic lung changes with no acute cardiopulmonary disease. Transfer Plan - Disposition Transfer Plan: The patient is to be transferred to [facility] for physical therapy. - Time Spent with Patient Time spent with patient: Greater than 30 Minutes Qualifiers PATEINT BEING DISCHARGED WITH ANY OF THE FOLLOWING DIAGNOSIS?: CO CO Pt being discharged on Aspirin therapy?: Yes CO Pt being discharged on Statins?: Yes CO Pt discharged ACEI/ARBS?: Yes Plan Discharge Plan: We will transfer to [facility] nurse [facility] for rehab. Time Spent: Greater than 30 Minutes
[2017-02-14 12:55] VITALS: BP 148/65
[2017-02-14] MEDS: CEFTRIAXONE 1 GM/D5W RTU 1 GM/50 ML RTUPB IV SCH (13:34)
[2017-02-14 15:31] LABS: ARTERIAL BLOOD O2 SATURATION 97.3 % (94-98)
== END 2017-02-14 17:35 | DRG 689 ==
LOC: ER 10:55 → UNDOADMIN 16:02 → EH 16:02 → 4N 18:32 → EH 18:32
PROVIDERS: ADMIT Hospitalist; ATTEND Hospitalist
PROC: 3E0234Z Introduction of Serum, Toxoid and Vaccine into Muscle, Percutaneous Approach (ICD-10-PCS; principal; 2017-02-14)
DX: N39.0 Urinary tract infection, site not specified (principal); I21.A1 Myocardial infarction type 2; G93.40 Encephalopathy, unspecified; K22.10 Ulcer of esophagus without bleeding; B95.7 Other staphylococcus as the cause of diseases classified elsewhere; F03.90 Unspecified dementia, unspecified severity, without behavioral disturbance, psychotic disturbance, mood disturbance, and anxiety; E87.6 Hypokalemia; I95.9 Hypotension, unspecified; I25.10 Atherosclerotic heart disease of native coronary artery without angina pectoris; G89.29 Other chronic pain; M19.90 Unspecified osteoarthritis, unspecified site; Z79.02 Long term (current) use of antithrombotics/antiplatelets; R63.4 Abnormal weight loss; I10 Essential (primary) hypertension; J44.9 Chronic obstructive pulmonary disease, unspecified; M32.9 Systemic lupus erythematosus, unspecified; F17.210 Nicotine dependence, cigarettes, uncomplicated; Z66 Do not resuscitate; K22.2 Esophageal obstruction; S00.83XA Contusion of other part of head, initial encounter; W19.XXXA Unspecified fall, initial encounter; Y92.002 Bathroom of unspecified non-institutional (private) residence as the place of occurrence of the external cause; Z86.73 Personal history of transient ischemic attack (TIA), and cerebral infarction without residual deficits; Z79.899 Other long term (current) drug therapy; Z85.51 Personal history of malignant neoplasm of bladder; Z95.5 Presence of coronary angioplasty implant and graft; Z82.49 Family history of ischemic heart disease and other diseases of the circulatory system; Z82.3 Family history of stroke; Z87.891 Personal history of nicotine dependence; Z23 Encounter for immunization
CPT/HCPCS: 36415; 36600; 71010; 80048; 80053; 81001; 82330; 82550; 82553; 82803; 82962; 83605; 83735; 84484; 85025; 87040; 87077; 87086; 87186; 90686; 93005; 93010; 96361; 96365; 99285; J0696; J1650; J3480; J3490; J7030

== ENCOUNTER 2017-02-20 06:10 | Emergency (ER) | payer MEDICARE, BC ==
--- NOTE | 2017-02-20 07:31 | ER Document Report ---
ED Fall - General Mode of Arrival: Ambulatory Information source: Patient TRAVEL OUTSIDE OF THE [place] IN LAST 30 DAYS: No <EAMON GIRALDO - Last Filed: 02/20/17 08:21> <OMAR ZAZUETA - Last Filed: 02/20/17 09:00> - General Chief Complaint: Fall Stated Complaint: FALL,BACK PAIN Time Seen by Provider: 02/20/17 06:31 Notes: Patient is an 86 year old female that presents to the emergency department today after a fall that occurred at her group home just prior to arrival. Patient only complaints of low back pain. Son at bedside states that the patient is at baseline mentally and "has a very low pain tolerance". (EAMON GIRALDO) - Related data Allergies/Adverse Reactions: No Known Allergies Allergy (Verified 12/23/13 16:02) Past Medical History - General Information source: Patient - Social History Smoking Status: Never Smoker Cigarette use (# per day): No Frequency of alcohol use: None Drug Abuse: None Lives with: Family Family History: Reviewed & Not Pertinent, CVA, DM, Hypertension Patient has suicidal ideation: No Patient has homicidal ideation: No - Past Medical History Cardiac Medical History: Reports: Hx Coronary Artery Disease, Hx Hypertension Pulmonary Medical History: Reports: Hx COPD GI Medical History: Reports: Hx Ulcer - Esophageal Musculoskeltal Medical History: Reports Hx Arthritis Psychiatric Medical History: Reports: Hx Anxiety Past Surgical History: Reports: Hx Cardiac Catheterization - 2 stents, Hx Hysterectomy - Immunizations Hx Diphtheria, Pertussis, Tetanus Vaccination: No <EAMON GIRALDO - Last Filed: 02/20/17 08:21> Review of Systems - Review of Systems Constitutional: No symptoms reported EENT: No symptoms reported Cardiovascular: No symptoms reported Respiratory: No symptoms reported Gastrointestinal: No symptoms reported Genitourinary: No symptoms reported Female Genitourinary: No symptoms reported Musculoskeletal: See HPI, Back pain Skin: No symptoms reported Hematologic/Lymphatic: No symptoms reported Neurological/Psychological: No symptoms reported -: Yes All other systems reviewed and negative <EAMON GIRALDO - Last Filed: 02/20/17 08:21> Physical Exam - Vital signs Interpretation: Normal - General General appearance: Appears well, Alert In distress: None - HEENT Head: Normocephalic, Atraumatic Eyes: Normal Pupils: PERRL Neck: Normal, Other - No midline tenderness to palpation - Respiratory Respiratory status: No respiratory distress Chest status: Nontender Breath sounds: Normal Chest palpation: Normal - Cardiovascular Rhythm: Regular - Abdominal Inspection: Normal Distension: No distension Bowel sounds: Normal Tenderness: Nontender - Back Back: Normal, Tender - Paraspinal L3-L5 bilaterally. No: CVA tenderness, Vertebra tenderness - Extremities General upper extremity: Normal inspection, Nontender, Normal color, Normal ROM , Normal temperature General lower extremity: Normal inspection, Nontender, Normal color, Normal ROM , Normal temperature - Neurological Neuro grossly intact: Yes Cognition: Normal, Confused - At baseline [place] Coma Scale Eye Opening: Spontaneous [place] Coma Scale Verbal: Oriented - At baseline [place] Coma Scale Motor: Obeys Commands [place] Coma Scale Total: 15 Speech: Normal Motor strength normal: LUE, RUE, LLE, RLE Sensory: Normal - Psychological Associated symptoms: Normal affect, Normal mood - Skin Skin Temperature: Warm Skin Moisture: Dry Skin Color: Normal Skin irregularity: other - Healing abrasions to bilateral upper extremities <OMAR ZAZUETA - Last Filed: 02/20/17 09:00> - Vital signs Vitals: Temp Pulse Resp BP Pulse Ox 98 F 72 16 109/74 96 02/20/17 06:17 02/20/17 06:17 02/20/17 06:17 02/20/17 06:17 02/20/17 06:17 Course <EAMON GIRALDO - Last Filed: 02/20/17 08:21> <OMAR ZAZUETA - Last Filed: 02/20/17 09:00> - Re-evaluation Re-evalutation: 02/20/17 08:12 Patient is an 86-year-old female who apparently fell this morning at her senior living facility. Patient has no complaints. Son states he thinks that it scared her more than anything. Patient is at her cognitive and physical baseline. Patient is able to move everything. No tenderness to palpation over her hips. Patient is able to sit up without difficulty. Son and I agree that no blood work or imaging is warranted at this time. Patient is hungry and would like to eat. Prefer to go back to her facility at this time and will need an ambulance ride back. Stable for discharge. Follow-up with PMD this week (OMAR ZAZUETA) - Vital Signs Vital signs: Temp Pulse Resp BP Pulse Ox 98.1 F 72 20 172/55 H 99 02/20/17 07:47 02/20/17 07:47 02/20/17 07:47 02/20/17 07:47 02/20/17 07:47 Discharge <EAMON GIRALDO - Last Filed: 02/20/17 08:21> <OMAR ZAZUETA - Last Filed: 02/20/17 09:00> - Discharge Clinical Impression: Fall Qualifiers: Encounter type: initial encounter Qualified Code(s): W19.XXXA - Unspecified fall, initial encounter Arm abrasion Qualifiers: Encounter type: subsequent encounter Laterality: unspecified laterality Qualified Code(s): S40.819D - Abrasion of unspecified upper arm, subsequent encounter Back contusion Qualifiers: Encounter type: initial encounter Laterality: unspecified laterality Qualified Code(s): S20.229A - Contusion of unspecified back wall of thorax, initial encounter Condition: Stable Disposition: HOME-SNF (ED ONLY) Instructions: Abrasions ([facility]), Contusion ([facility]) Referrals: MEKA VERA MD [Primary Care Provider] - Follow up in 3-5 days Scribe Attestation: 02/20/17 08:59 I personally performed the services described in the documentation, reviewed and edited the documentation which was dictated to the scribe in my presence, and it accurately records my words and actions. (OMAR ZAZUETA) Scribe Documentation - Scribe Written by Joseiblinda:: Quique Casey, 02/20/2017 0825 acting as scribe for :: Suzie <EAMON GIRALDO - Last Filed: 02/20/17 08:21>
[2017-02-20 07:49] VITALS: BP 172/55
== END 2017-02-20 08:00 ==
LOC: ER 06:10
DX: S20.229A Contusion of unspecified back wall of thorax, initial encounter (principal); W19.XXXA Unspecified fall, initial encounter; Y92.129 Unspecified place in nursing home as the place of occurrence of the external cause; S40.812D Abrasion of left upper arm, subsequent encounter; S40.811D Abrasion of right upper arm, subsequent encounter; X58.XXXD Exposure to other specified factors, subsequent encounter; I25.10 Atherosclerotic heart disease of native coronary artery without angina pectoris; I10 Essential (primary) hypertension; J44.9 Chronic obstructive pulmonary disease, unspecified
CPT/HCPCS: 99284